=== PATIENT | male | born 1985 | race African-American/Black ===

== ENCOUNTER 2020-09-02 08:51 | Outpatient (CLI) | payer BC | END 2020-09-02 08:52 | disposition home or self-care (01) | LOC: CSHULT 08:51 | PROVIDERS: ATTEND Urology | DX: N50.819 Testicular pain, unspecified (principal); I86.1 Scrotal varices | CPT/HCPCS: 76870; 93976 ==

== ENCOUNTER 2022-05-19 05:30 | Emergency (ER) | payer BC ==
[2022-05-19 07:01] LABS: SARS-CoV-2 NAA Rapid Test DETECTED (NotDetected)
== END 2022-05-19 07:22 | disposition home or self-care (01) ==
LOC: CSHERS 05:30
DX: U07.1 COVID-19 (principal); J45.901 Unspecified asthma with (acute) exacerbation
CPT/HCPCS: 99283

== ENCOUNTER 2023-07-01 09:06 | Outpatient (CLI) | payer BC | END 2023-07-01 09:07 | disposition home or self-care (01) | LOC: CSHULT 09:06 | PROVIDERS: ATTEND Urology | DX: N50.89 Other specified disorders of the male genital organs (principal); I86.1 Scrotal varices | CPT/HCPCS: 76870 ==

== ENCOUNTER 2023-07-09 11:14 | Outpatient (CLI) | payer BC | END 2023-07-09 11:15 | disposition home or self-care (01) | LOC: CSHRAD 11:14 | PROVIDERS: ATTEND Family Medicine | DX: M79.672 Pain in left foot (principal); M79.671 Pain in right foot ==

== ENCOUNTER 2024-06-05 08:30 | Outpatient (CLI) | payer BC | END 2024-06-05 08:31 | disposition home or self-care (01) | LOC: CSHSLEEP 08:30 | PROVIDERS: ATTEND Internal Medicine Critical Care Medicine | DX: G47.33 Obstructive sleep apnea (adult) (pediatric) (principal); R53.83 Other fatigue; G47.10 Hypersomnia, unspecified | CPT/HCPCS: 95800 ==